=== PATIENT | female | born 2005 | race Caucasian/White ===

== ENCOUNTER 2025-04-30 08:35 | Emergency (ER) | payer SELFPAY | END 2025-04-30 10:09 | disposition home or self-care (01) | LOC: ERS 08:35 | DX: S61.210A Laceration without foreign body of right index finger without damage to nail, initial encounter (principal); W23.1XXA Caught, crushed, jammed, or pinched between stationary objects, initial encounter; Z23 Encounter for immunization | CPT/HCPCS: 90471; 90715 ==